=== PATIENT | female | born 1955 | race Caucasian/White ===

== ENCOUNTER → 2017-05-05 | Outpatient (CLI) | payer BC | LOC: FIMAGING 08:44 | PROVIDERS: ATTEND Nurse Practitioner Obstetrics & Gynecology | DX: Z12.31 Encounter for screening mammogram for malignant neoplasm of breast (principal) | CPT/HCPCS: G0202 ==

== ENCOUNTER → 2017-05-19 | Outpatient (CLI) | payer BC | LOC: FIMAGING 10:09 | PROVIDERS: ATTEND Nurse Practitioner Obstetrics & Gynecology | DX: N60.02 Solitary cyst of left breast (principal) ==

== ENCOUNTER → 2018-06-29 | Outpatient (CLI) | payer BC | LOC: FIMAGING 08:55 | PROVIDERS: ATTEND Obstetrics & Gynecology | DX: Z12.31 Encounter for screening mammogram for malignant neoplasm of breast (principal) ==